=== PATIENT | male | born 1960 | race Caucasian/White ===

== ENCOUNTER 2018-06-17 13:36 | Emergency (ER) | payer OTHER ==
[~2018-06-17] VITALS: Ht 170.2 cm; Wt 77.6 kg
[2018-06-17 13:40] VITALS: BP 166/106
[2018-06-17] MEDS ORDERED: BACITRACIN OINT 500 UNITS/GM PKT TP ONE (14:25)
[2018-06-17] MEDS ORDERED: HYDROcodone/APAP 7.5/325 MG 1 TAB PO ONE (14:25)
[2018-06-17] MEDS ORDERED: IBUPROFEN 600 MG TAB PO ONE (14:25)
[2018-06-17] MEDS ORDERED: ONDANSETRON 4 MG ODT PO ONE (14:25)
[2018-06-17 15:23] VITALS: BP 137/91
== END 2018-06-17 15:23 | disposition home or self-care (01) ==
LOC: MED 13:36
DX: S40.811A Abrasion of right upper arm, initial encounter (principal); M79.1 Myalgia; E78.5 Hyperlipidemia, unspecified; W17.89XA Other fall from one level to another, initial encounter; Y93.89 Activity, other specified; Y92.89 Other specified places as the place of occurrence of the external cause; Y99.8 Other external cause status
CPT/HCPCS: 90471; 90715; 99284; S0119

== ENCOUNTER 2018-10-04 10:43 | Inpatient (IN) | payer OTHER ==
[~2018-10-04] VITALS: Ht 170.2 cm; Wt 79.4 kg
[2018-10-04 10:50] VITALS: BP 131/81
[2018-10-04] MEDS ORDERED: QUET50TA PO (11:05)
[2018-10-04] MEDS ORDERED: DIVA500T47 PO (11:05)
[2018-10-04] MEDS ORDERED: ARIP5TAB8 PO (11:05)
[2018-10-04] MEDS ORDERED: TRAZ-344 PO (11:05)
[2018-10-04 11:20] LABS: BASOPHILS # (AUTO) 0.1 K/uL (0.00-0.22); BASOPHILS % (AUTO) 1.2 % (0.0-2.0); EOSINOPHILS # (AUTO) 0.1 K/uL (0-0.4); EOSINOPHILS % (AUTO) 0.7 % (0.0-4.0); HEMATOCRIT 47.8 % (36-52); HEMOGLOBIN 16.2 g/dL (12.0-18.0); LYMPHOCYTES % (AUTO) 27.5 % (20.5-51.1); MEAN CORPUSCULAR HEMOGLOBIN 31 pg (27-31); MEAN CORPUSCULAR HGB CONC 34 g/dL (33-37); MEAN CORPUSCULAR VOLUME 90.8 fL (80-94); MONOCYTES # (AUTO) 0.5 K/uL (0.8-1.0); MONOCYTES % (AUTO) 6.6 % (1.7-9.3); NEUTROPHILS # (AUTO) 4.6 K/uL (1.8-7.7); PLATELET COUNT (AUTO) 267 K/uL (140-450); RED BLOOD CELL COUNT(AUTO) 5.27 MIL/uL (4.20-6.10); RED CELL DISTRIBUTION WIDTH 13.2 % (11.6-13.7); WHITE BLOOD COUNT (AUTO) 7.2 K/uL (4.8-10.8)
[2018-10-04 11:32] LABS: APPEARANCE,URINE CLOUDY (CLEAR); BILIRUBIN,URINE NEGATIVE (NEGATIVE); BLOOD, URINE 2+ (NEGATIVE); COLOR,URINE RED (YELLOW); LEUKOCYTE ESTERASE ,URINE NEGATIVE (NEGATIVE); NITRITE, URINE NEGATIVE (NEGATIVE); PH,URINE 6.5 (5.0-9.0); UGLUCOSE NEGATIVE (NEGATIVE)
[2018-10-04 11:33] LABS: RBC,URINE TOO NUMEROUS TO COUN /HPF (0-5); WBC,URINE 0-5 (RARE) /HPF (0-5)
[2018-10-04 11:52] LABS: ALBUMIN 3.9 g/dL (3.4-5.0); ANION GAP 13.9 (8-16); CREATININE 0.9 mg/dL (0.7-1.3); POTASSIUM 3.9 mmol/L (3.5-5.1); TOTAL BILIRUBIN 0.4 mg/dL (0.0-1.0)
[2018-10-04 12:14] LABS: PROTHROMBIN TIME 9.9 secs (10.8-13.4)
[2018-10-04] MEDS ORDERED: DOCUSATE SODIUM 100 MG GELCAP PO PRN (16:00)
[2018-10-04] MEDS ORDERED: ZOLPIDEM 5 MG TAB PO PRN (16:00)
[2018-10-04] MEDS ORDERED: ONDANSETRON 4 MG/2 ML VIAL IM/IVP PRN (16:00)
[2018-10-04] MEDS ORDERED: HYDROcodone/APAP 5/325 MG 1 TAB TAB PO PRN (16:00)
[2018-10-04] MEDS ORDERED: ACETAMINOPHEN 325 MG TAB PO PRN (16:00)
[2018-10-04] MEDS ORDERED: LORazepam 2 MG/ML VIAL IM/IVP PRN (16:00)
[2018-10-04 16:45] VITALS: BP 146/95
[2018-10-04 16:56] LABS: CHOL/HDL RATIO 6.8 (1-4.5); MAGNESIUM 2.1 mg/dL (1.8-2.4); PHOSPHORUS 2.8 mg/dL (2.5-4.9); THYROID STIMULATING HORMONE 1.71 uIU/mL (0.34-3.74)
[2018-10-04 17:22] LABS: BARBITURATE, URINE NEG. ng/ml (NEG <=200); BENZODIAZEPINE, URINE NEG. ng/mL (NEG <=200); CANNABINOID, URINE NEG. ng/mL (NEG <=50); COCAINE, URINE NEG. ng/mL (NEG <=300); OPIATE, URINE NEG. ng/mL (NEG <=2000); PHENCYCLIDINE SCREEN,URINE NEG. ng/mL (NEG <=25)
[2018-10-04] MEDS: NACL 0.9% 1,000 ML IV SCH (18:33)
[2018-10-04] MEDS ORDERED: cefTRIAXone 1,000 MG VIAL ONE (18:55)
[2018-10-04] MEDS ORDERED: BISACODYL 10 MG SUPP RC SCH (19:30)
[2018-10-05] VITALS: BP 111/74
[2018-10-05 08:00] VITALS: BP 135/80
[2018-10-05 08:20] LABS: BASOPHILS % (AUTO) 0.5 % (0.0-2.0); EOSINOPHILS % (AUTO) 0.3 % (0.0-4.0); HEMATOCRIT 44.5 % (36-52); HEMOGLOBIN 14.9 g/dL (12.0-18.0); LYMPHOCYTES # (AUTO) 0.9 K/uL (2.0-11.5); LYMPHOCYTES % (AUTO) 12.7 % (20.5-51.1); MEAN CORPUSCULAR HEMOGLOBIN 30 pg (27-31); MEAN CORPUSCULAR HGB CONC 34 g/dL (33-37); MEAN CORPUSCULAR VOLUME 90.5 fL (80-94); MONOCYTES # (AUTO) 0.5 K/uL (0.8-1.0); MONOCYTES % (AUTO) 6.9 % (1.7-9.3); NEUTROPHILS # (AUTO) 5.5 K/uL (1.8-7.7); NEUTROPHILS % (AUTO) 79.6 % (42.2-75.2); PLATELET COUNT (AUTO) 212 K/uL (140-450); RED BLOOD CELL COUNT(AUTO) 4.91 MIL/uL (4.20-6.10)
[2018-10-05] MEDS: LACTOBACILLUS RHAMNOSUS GG 1 EACH CAP PO SCH (08:44)
[2018-10-05] MEDS: ARIPiprazole 10 MG TAB PO SCH (08:44)
[2018-10-05] MEDS: NACL 0.9% 1,000 ML IV SCH (08:53)
[2018-10-05 09:14] LABS: ANION GAP 15.5 (8-16); CARBON DIOXIDE 23.6 mmol/L (21-32); CREATININE 0.9 mg/dL (0.7-1.3); POTASSIUM 4.1 mmol/L (3.5-5.1)
[2018-10-05 09:27] LABS: MAGNESIUM 1.9 mg/dL (1.8-2.4); PHOSPHORUS 3.1 mg/dL (2.5-4.9)
[2018-10-05 16:00] VITALS: BP 122/79
[2018-10-06] VITALS: BP 122/80
[2018-10-06] MEDS: NACL 0.9% 1,000 ML IV SCH ×2 (01:19→07:30)
[2018-10-06 07:47] LABS: BASOPHILS % (AUTO) 0.6 % (0.0-2.0); EOSINOPHILS # (AUTO) 0.1 K/uL (0-0.4); HEMATOCRIT 47.2 % (36-52); HEMOGLOBIN 15.6 g/dL (12.0-18.0); LYMPHOCYTES # (AUTO) 1.9 K/uL (2.0-11.5); MEAN CORPUSCULAR HEMOGLOBIN 30 pg (27-31); MEAN CORPUSCULAR HGB CONC 33 g/dL (33-37); MEAN CORPUSCULAR VOLUME 90.6 fL (80-94); MONOCYTES # (AUTO) 0.7 K/uL (0.8-1.0); MONOCYTES % (AUTO) 10.8 % (1.7-9.3); NEUTROPHILS # (AUTO) 3.3 K/uL (1.8-7.7); NEUTROPHILS % (AUTO) 54.6 % (42.2-75.2); PLATELET COUNT (AUTO) 220 K/uL (140-450); RED BLOOD CELL COUNT(AUTO) 5.21 MIL/uL (4.20-6.10); RED CELL DISTRIBUTION WIDTH 12.9 % (11.6-13.7); WHITE BLOOD COUNT (AUTO) 6.1 K/uL (4.8-10.8)
[2018-10-06 08:00] VITALS: BP 145/85
[2018-10-06 08:38] LABS: ANION GAP 12.2 (8-16); CARBON DIOXIDE 25.8 mmol/L (21-32); CREATININE 0.9 mg/dL (0.7-1.3)
[2018-10-06 08:43] LABS: MAGNESIUM 1.9 mg/dL (1.8-2.4); PHOSPHORUS 2.9 mg/dL (2.5-4.9)
[2018-10-06] MEDS: LACTOBACILLUS RHAMNOSUS GG 1 EACH CAP PO SCH (08:49)
[2018-10-06] MEDS: ARIPiprazole 10 MG TAB PO SCH (08:49)
[2018-10-06] MEDS ORDERED: ATORVASTATIN 20 MG TAB PO SCH (09:00)
== END 2018-10-06 15:25 | disposition short-term general hospital (02) | DRG 468 ==
LOC: MED 10:43 → MTU 16:01
PROVIDERS: ADMIT General Practice; ATTEND General Practice
DX: N28.89 Other specified disorders of kidney and ureter (principal); E66.3 Overweight; N39.0 Urinary tract infection, site not specified; E78.5 Hyperlipidemia, unspecified; F32.9 Major depressive disorder, single episode, unspecified; R31.0 Gross hematuria; N43.3 Hydrocele, unspecified; K46.9 Unspecified abdominal hernia without obstruction or gangrene; K57.90 Diverticulosis of intestine, part unspecified, without perforation or abscess without bleeding; Z79.899 Other long term (current) drug therapy; Z87.891 Personal history of nicotine dependence; Z68.27 Body mass index [BMI] 27.0-27.9, adult
CPT/HCPCS: 36415; 80048; 80053; 80305; 81001; 83036; 83690; 83735; 84100; 84134; 84443; 85025; 85610; 85730; 87081; 87086; 93005; 99285; J0696; J7030; J7060; Q9967